=== PATIENT | female | born 1960 | race Caucasian/White ===

== ENCOUNTER 2019-12-05 13:21 | Emergency (ER) | payer OTHER | END 2019-12-05 17:18 | disposition home or self-care (01) | LOC: ER 13:21 | DX: R55 Syncope and collapse (principal); F12.90 Cannabis use, unspecified, uncomplicated; I10 Essential (primary) hypertension; E78.00 Pure hypercholesterolemia, unspecified; K21.9 Gastro-esophageal reflux disease without esophagitis; F17.200 Nicotine dependence, unspecified, uncomplicated; Z86.73 Personal history of transient ischemic attack (TIA), and cerebral infarction without residual deficits; Z88.8 Allergy status to other drugs, medicaments and biological substances; Z79.82 Long term (current) use of aspirin; Z79.02 Long term (current) use of antithrombotics/antiplatelets; Z79.899 Other long term (current) drug therapy ==

== ENCOUNTER → 2020-01-06 | Outpatient (CLI) | payer OTHER ==
[~2020-01-06] MED LIST: ACET500 PO; ASPI81CH PO; ATOR40TA PO; CLOP75 PO; Cran-Max500 MG PO; FAMO40 PO; HYDCHL25 PO; METO25ER PO; MULTIVITAMINS1 EAC3 PO; NICO21TP TOP; OMEP20ER PO; TURMERIC500 M2 PO; VITAMIN D31000 UNI1 PO
[2020-01-09 08:09] LABS: HPV 16 Negative (Negative); HPV 18 Negative (Negative); HPV OTHER HR TYPES Negative (Negative)
== END | disposition home or self-care (01) ==
LOC: LAB SHORT 16:45 → LAB UCHC 16:45
PROVIDERS: Family Medicine
DX: Z01.419 Encounter for gynecological examination (general) (routine) without abnormal findings (principal)
CPT/HCPCS: 87624; G0123

== ENCOUNTER 2020-05-12 09:27 | Inpatient (IN) | payer OTHER ==
[~2020-05-12] VITALS: Ht 165.1 cm; Wt 62.9 kg
[~2020-05-12 09:27] MED LIST changes: +Aspirin EC81 MG PO; +CRANBERRY500 M1 PO; +FAMO20 PO; +MULTIPLE VITAM1 EACH PO; +PLAVIX75 MG PO; +TOPROL XL25 MG PO
--- NOTE | 2020-05-12 10:17 | NUR ---
05/12/20 Judith Wooten UPON ADMISSION, PT'S HR IS 197BPM ACCORDING TO 3LEAD EKG. DR. LOPEZ AWARE, 12LEAD EKG ORDERED WITH RESULT OF 93BPM. PT DENIES ANY CHEST PAIN OR FEELING THAT HER HEART RATE IS FAST. PT SMILING, LAUGHING AND MAKING JOKES IN THE ROOM. WILL CONTINUE TO MONITOR. DR. LOPEZ OK TO PROCEED WITH PROCEDURES.
--- NOTE | 2020-05-12 12:54 | NUR ---
05/12/20 1254 DarioAriana Angel Luis 1148 PT. BACK IN ROOM FROM ENDO PROCEDURE. PT. VOMITING SMALL AMT. OF BILE. PT. C/O ABD. PAIN RATING "8". PT. WAS ASKED TO DESCRIBE HER PAIN BUT COULDN'T. PT. STATED "IT JUST HURTS." SEE VITAL STRIP. 1208 25MCG IV FENTANLY GIVEN FOR ABD. PAIN PER ORDER. 1213 PT. VERBALIZES ABDOMEN PAIN BETTER RATING "6-7". PT. VERBALIZES NO NAUSEA NOW. 1219 PT. TAKEN TO XRAY FOR XRAY OF ABDOMEN PER DRNiraj ORDER. PT. WAS TAKEN VIA WC & WRAPPED WITH WARM BLANKETS. 1240 PT. BACK FROM XRAY & TALKING WITH PT. THAT SHE NEEDS TO BE ADMITTED TO HOSPITAL FOR OBSERVATION R/T A LARGE POLYP BEING REMOVED. 1246 25MCG IV FENTANYL GIVEN PER ORDER FOR ABD. PAIN.
--- NOTE | 2020-05-12 14:42 | NUR ---
05/12/20 1442 Judith Avalos LATE ENTRY: INDIGO CARMINE INJECTION MIX INCLUDED 2CC OF EPI 1:1,000 AND 20CC OF NORMAL SALINE.
[2020-05-12 15:00] LABS: BASOPHILS ABSOLUTE AUTO 0.07 K/mm3 (0.00-0.23); BASOPHILS PERCENT AUTO 0 % (0-2); EOSINOPHILS PERCENT AUTO 0 % (0-6); Hematocrit 41.7 % (33.0-51.0); Hemoglobin 14.5 g/dL (11.5-16.0); IMMATURE GRAN ABSOLUTE AUTO 0.11 K/mm3 (0.00-0.10); IMMATURE GRAN PERCENT AUTO 1 % (0-1); LYMPHOCYTES ABSOLUTE AUTO 1.09 K/mm3 (0.84-5.20); LYMPHOCYTES PERCENT AUTO 6 % (21-46); MONOCYTES ABSOLUTE AUTO 0.46 K/mm3 (0.16-1.47); MONOCYTES PERCENT AUTO 2 % (4-13); Mean Corpuscular HGB 32.4 pg (26.0-34.0); Mean Corpuscular HGB Conc 34.8 g/dL (31.5-36.5); Mean Corpuscular Volume 93 fL (80-100); NEUTROPHILS ABSOLUTE AUTO 18.09 K/mm3 (1.96-9.15); NEUTROPHILS PERCENT AUTO 91 % (41-73); Platelet Count 315 K/mm3 (150-400); RDW Coefficient Variation 11.8 % (11.7-14.2); RDW Standard Deviation 40.4 fL (35.1-46.3); Red Blood Cell Count 4.48 M/mm3 (3.80-5.20); White Blood Cell Count 19.82 K/mm3 (4.00-11.30)
[2020-05-12 15:19] LABS: Alanine Aminotransfer (ALT/SGP 21 U/L (12-78); Albumin, Blood 3.7 g/dL (3.4-5.0); Albumin/Globulin Ratio 1.1 (0.8-1.8); Alk Phos 108 U/L (50-136); Anion Gap 13 mmol/L (6-16); Aspartate Aminotrans (AST/SGOT 19 U/L (12-37); Bilirubin, Total 0.2 mg/dL (0.1-1.0); Blood Urea Nitrogen 17 mg/dL (8-24); CO2, Blood 23 mmol/L (21-32); Calcium, Blood 9.1 mg/dL (8.5-10.1); Chloride, Blood 107 mmol/L (98-108); Creatinine, Blood 0.68 mg/dL (0.40-1.00); Globulin, Blood 3.4 g/dL (2.2-4.0); Glomerular Filtration Rate >60 (60-); Glucose, Blood 100 mg/dL (70-99); Potassium, Blood 3.7 mmol/L (3.5-5.5); Sodium, Blood 143 mmol/L (136-145); Total Protein, Blood 7.1 g/dL (6.4-8.2)
[2020-05-13 05:54] LABS: BASOPHILS ABSOLUTE AUTO 0.06 K/mm3 (0.00-0.23); BASOPHILS PERCENT AUTO 1 % (0-2); EOSINOPHILS ABSOLUTE AUTO 0.06 K/mm3 (0.00-0.68); EOSINOPHILS PERCENT AUTO 1 % (0-6); Hematocrit 34.1 % (33.0-51.0); Hemoglobin 11.5 g/dL (11.5-16.0); IMMATURE GRAN ABSOLUTE AUTO 0.05 K/mm3 (0.00-0.10); IMMATURE GRAN PERCENT AUTO 0 % (0-1); LYMPHOCYTES ABSOLUTE AUTO 2.78 K/mm3 (0.84-5.20); LYMPHOCYTES PERCENT AUTO 22 % (21-46); MONOCYTES ABSOLUTE AUTO 0.91 K/mm3 (0.16-1.47); MONOCYTES PERCENT AUTO 7 % (4-13); Mean Corpuscular HGB 31.2 pg (26.0-34.0); Mean Corpuscular HGB Conc 33.7 g/dL (31.5-36.5); Mean Corpuscular Volume 92 fL (80-100); Mean Platelet Volume 10.5 fL (9.1-12.4); NEUTROPHILS ABSOLUTE AUTO 8.95 K/mm3 (1.96-9.15); NEUTROPHILS PERCENT AUTO 70 % (41-73); Platelet Count 288 K/mm3 (150-400); RDW Coefficient Variation 11.9 % (11.7-14.2); RDW Standard Deviation 40.3 fL (35.1-46.3); Red Blood Cell Count 3.69 M/mm3 (3.80-5.20); White Blood Cell Count 12.81 K/mm3 (4.00-11.30)
[2020-05-13 06:23] LABS: Anion Gap 7 mmol/L (6-16); Blood Urea Nitrogen 17 mg/dL (8-24); Bun/Creatinine Ratio 24.8 (12.0-20.0); CO2, Blood 25 mmol/L (21-32); Calcium, Blood 8.2 mg/dL (8.5-10.1); Chloride, Blood 113 mmol/L (98-108); Creatinine, Blood 0.69 mg/dL (0.40-1.00); Glomerular Filtration Rate >60 (60-); Glucose, Blood 63 mg/dL (70-99); Potassium, Blood 3.5 mmol/L (3.5-5.5); Sodium, Blood 145 mmol/L (136-145)
--- NOTE | 2020-05-13 08:58 | NUR ---
A&0X3, DENIES ANY PAIN OR NAUSEA, ABD SOFT, ACTIVE BT'S X4, REPORTS FEELING "HUNGRY" CONT. TO MONITOR FOR ANY CHANGES, MEDICATE FOR PAIN PRN.
[2020-05-13] MEDS ORDERED: Nicoderm Cq1 EAC1 TOP (13:28)
--- NOTE | 2020-05-13 14:08 | NUR ---
PT TOLERATED REGULAR DIET WELL, DENIES ANY ABD PAIN OR DISCOMFORT, DC'D HOME, DC INSTRUCTIONS GIVEN, VERBALZIED UNDERSTANDING.
[2020-09-25] MEDS ORDERED: Lisinopril-Hct1 EAC4 PO (13:24)
== END 2020-05-13 14:00 | disposition home or self-care (01) | DRG 948 ==
LOC: ORSCSDS 09:27 → SURS 14:07 → ORSCSDS 14:09 → SURS 14:11
PROVIDERS: Student in an Organized Health Care Education/Training Program; ADMIT Internal Medicine
PROC: 0D5K8ZZ Destruction of Ascending Colon, Via Natural or Artificial Opening Endoscopic (ICD-10-PCS; 2020-05-12)
PROC: 0DBN8ZZ Excision of Sigmoid Colon, Via Natural or Artificial Opening Endoscopic (ICD-10-PCS; 2020-05-12)
PROC: 0DBL8ZZ Excision of Transverse Colon, Via Natural or Artificial Opening Endoscopic (ICD-10-PCS; 2020-05-12)
PROC: 0DBN8ZX Excision of Sigmoid Colon, Via Natural or Artificial Opening Endoscopic, Diagnostic (ICD-10-PCS; 2020-05-12)
PROC: 0DB48ZX Excision of Esophagogastric Junction, Via Natural or Artificial Opening Endoscopic, Diagnostic (ICD-10-PCS; principal; 2020-05-12 10:45)
PROC: 0DBK8ZZ Excision of Ascending Colon, Via Natural or Artificial Opening Endoscopic (ICD-10-PCS; 2020-05-12 10:45)
DX: G89.18 Other acute postprocedural pain (principal); I69.354 Hemiplegia and hemiparesis following cerebral infarction affecting left non-dominant side; K21.9 Gastro-esophageal reflux disease without esophagitis; I10 Essential (primary) hypertension; E78.5 Hyperlipidemia, unspecified; F17.210 Nicotine dependence, cigarettes, uncomplicated; J43.9 Emphysema, unspecified; Z98.890 Other specified postprocedural states; Z88.8 Allergy status to other drugs, medicaments and biological substances; Z79.02 Long term (current) use of antithrombotics/antiplatelets; Z79.82 Long term (current) use of aspirin; Z79.899 Other long term (current) drug therapy
CPT/HCPCS: 36415; 74019; 80048; 80053; 85025; 88305; 93005; 93010; J2405; J2543; J2704; J3010; J7030; J7040; J7120

== ENCOUNTER 2020-08-17 08:14 | Day surgery (SDC) | payer OTHER ==
[~2020-08-17 08:14] MED LIST changes: +Nicoderm Cq1 EAC1 TOP
[2020-08-17 09:40] LABS: Creatinine (POC) 0.7 mg/dL (0.6-1.0)
[2020-09-25] MEDS ORDERED: Lisinopril-Hct1 EAC4 PO (13:24)
== END 2020-08-17 23:22 | disposition home or self-care (01) ==
LOC: ORSCMMR 08:14 → ORD 08:14 → CT 08:14 → ORSCMMR 08:15 → ORD 08:30 → ORSCMMR 08:30 → CT 09:00 → ORSCMMR 23:22
PROVIDERS: Internal Medicine Cardiovascular Disease
DX: R07.9 Chest pain, unspecified (principal); I25.10 Atherosclerotic heart disease of native coronary artery without angina pectoris; I10 Essential (primary) hypertension; E78.5 Hyperlipidemia, unspecified; I69.898 Other sequelae of other cerebrovascular disease; Z88.8 Allergy status to other drugs, medicaments and biological substances; Z79.899 Other long term (current) drug therapy; F17.210 Nicotine dependence, cigarettes, uncomplicated
CPT/HCPCS: 75574; 82565; Q9967

== ENCOUNTER 2020-09-28 07:54 | Day surgery (SDC) | payer OTHER ==
[~2020-09-28] VITALS: Ht 167.6 cm; Wt 60.0 kg
[~2020-09-28 07:54] MED LIST changes: +Lisinopril-Hct1 EAC4 PO
--- NOTE | 2020-09-28 10:32 | NUR ---
ZIO PATCH ZIO PATCH PLACE BY ANESTHESIOLOGIST.
--- NOTE | 2020-09-28 10:56 | NUR ---
DISCHARGE PT REMAINED A&OX3 AND DENIED ANY PAIN DURING RECOVERY. PT ABLE TO SWALLOW WATER WITH EASE. ZIO PATCH PLACED. IV DC'D WITH CANULA IN TACT. DISCHARGE PAPERWORK GONE OVER WITH PT. PT VERBALLY STATED THE UNDERSTANDING OF THE DISCHARGE EDUCATION AND DENIED ANY QUESTIONS AT THIS TIME. THIS NURSE WALKED OUT WITH PATIENT.
== END 2020-09-28 23:48 | disposition home or self-care (01) ==
LOC: MHTC 07:54
DX: I63.9 Cerebral infarction, unspecified (principal); I69.354 Hemiplegia and hemiparesis following cerebral infarction affecting left non-dominant side; I25.10 Atherosclerotic heart disease of native coronary artery without angina pectoris; I10 Essential (primary) hypertension; E78.5 Hyperlipidemia, unspecified; F17.200 Nicotine dependence, unspecified, uncomplicated; Z79.82 Long term (current) use of aspirin
CPT/HCPCS: 93246; 93312; 93325; A9270; J2704; J7030

== ENCOUNTER 2020-10-27 09:37 | Inpatient (IN) | payer OTHER ==
[~2020-10-27] VITALS: Ht 165.1 cm; Wt 59.5 kg
--- NOTE | 2020-10-27 14:49 | NUR ---
FENTANYL 12.5 MCG IV GIVEN FOR SEVERE CHEST PAIN POST CHEST TUBE PLACEMENT. TYLENOL 650 MG PO ALSO GIVEN FOR CHEST PAIN BOTH VERBAL ORDER BY DR. LESTER.
--- NOTE | 2020-10-27 14:56 | NUR ---
DR LESTER PLACED CHEST TUBE R/T SOB WITH PNEUMO ON 2V CXR. PT STILL HAVING PAIN BUT BREATHING BETTER, SATS STABLE, FENTANYL 62.5 GIVEN AND 1V CXR COMPLETE AND REVIEWED BY DR LESTER. PT ON COMMODE NOW, APPEARS PAIN IS SUBSIDING, DR COOLEY BY TO REVIEW SITUATION, PLAN IS TO ADMIT PT OVERNIGHT
--- NOTE | 2020-10-27 16:06 | NUR ---
PT DELIVERED BY BED TO RM 212 AND REPORT GIVEN, PT PAIN SIGNIFICANTLY INCREASED IN L DIAPHRAM AREA DURING GENTLE BED TO BED TRANSFER. APPEARS STABLE AND BREATHING UNLABORED. TELE UNIT BROUGHT BY COMPENSATION DIRECTOR, DR COOLEY V/O TO HOLD D/C ANCEF UNTIL LATER THIS EVENING.
--- NOTE | 2020-10-27 16:07 | NUR ---
PT ADMITTED TO ROOM 212 ABOUT 1600. PT IS A/O X4. TRANSFERRED TO BED USING SLIDER SHEET. PT IS VERY PAINFUL IN DIAPHRAGM AREA. URESIL CHEST TUBE IN PLACE L CHEST. PACER SITE L CHEST WITH SMALL AMT BLOOD ON DRESSING, BUT INTACT AND DRY. LUNGS DIMINISHED L SIDE VS RIGHT, HOWEVER PT IS UNABLE TO TAKE BIG BREATHS R/T PAIN. TELE PLACED, L ARM SLING PLACED, ICE PACK ON L SHOULDER. PT ORIENTED TO ROOM, CALL LIGHT IN REACH.
--- NOTE | 2020-10-27 16:28 | NUR ---
DISCHARGE INSTRUCTIONS DISCUSSED WITH PATIENT. INFORMATION PAMPHLET AT BEDSIDE.
--- NOTE | 2020-10-27 17:11 | NUR ---
PT MEDICATED WITH 0.5MG DILAUDED PER EMAR WITH GOOD EFFECT. PT RESTING IN BED, ARM SLING IN PLACE TO L ARM.
--- NOTE | 2020-10-28 03:49 | NUR ---
SHIFT SUMMARY NO ACUTE CHANGES THIS SHIFT. IV PAIN MEDS CHANGED TO FENTANYL AND PT REPORTS BETTER PAIN RELIEF. 1 NORCO ALSO GIVEN PRN. PACEMAKER DRESSING TO LEFT CHEST WALL REMAINS UNCHANGED. CHEST TUBE TO LEFT CHEST WALL REMAINS INTACT. PT INDEP TO THE RESTROOM. TELE: SR IN THE 60S PER TECH. USES CALL LIGHT APPROPRIATELY.
[2020-10-28 05:00] LABS: Hematocrit 35.8 % (33.0-51.0); Hemoglobin 11.8 g/dL (11.5-16.0); Mean Corpuscular HGB 30.3 pg (26.0-34.0); Mean Corpuscular Volume 92 fL (80-100); Mean Platelet Volume 10.7 fL (9.1-12.4); Platelet Count 244 K/mm3 (150-400); RDW Coefficient Variation 13.4 % (11.7-14.2); RDW Standard Deviation 45.1 fL (35.1-46.3); White Blood Cell Count 10.99 K/mm3 (4.00-11.30)
[2020-10-28 05:32] LABS: Anion Gap 4 mmol/L (6-16); Blood Urea Nitrogen 16 mg/dL (8-24); Bun/Creatinine Ratio 22.4 (12.0-20.0); CO2, Blood 30 mmol/L (21-32); Calcium, Blood 8.7 mg/dL (8.5-10.1); Chloride, Blood 105 mmol/L (98-108); Creatinine, Blood 0.72 mg/dL (0.40-1.00); Glomerular Filtration Rate >60 (60-); Glucose, Blood 101 mg/dL (70-99); Potassium, Blood 3.6 mmol/L (3.5-5.5); Sodium, Blood 139 mmol/L (136-145)
--- NOTE | 2020-10-28 14:20 | NUR ---
RESTING IN BED, ENCOURAGED OOB, DENIES ANY SOB.
== END 2020-10-28 18:00 | disposition home or self-care (01) | DRG 168 ==
LOC: MHTC 09:37 → SURS 15:15 → MHTC 15:31 → SURS 15:31
PROVIDERS: ADMIT Internal Medicine Cardiovascular Disease
PROC: 0JH606Z Insertion of Pacemaker, Dual Chamber into Chest Subcutaneous Tissue and Fascia, Open Approach (ICD-10-PCS; principal; 2020-10-27)
PROC: 0B9L30Z Drainage of Left Lung with Drainage Device, Percutaneous Approach (ICD-10-PCS; 2020-10-27)
PROC: 02HK3JZ Insertion of Pacemaker Lead into Right Ventricle, Percutaneous Approach (ICD-10-PCS; 2020-10-27)
PROC: 02H63JZ Insertion of Pacemaker Lead into Right Atrium, Percutaneous Approach (ICD-10-PCS; 2020-10-27)
DX: J95.811 Postprocedural pneumothorax (principal); I49.5 Sick sinus syndrome; F17.210 Nicotine dependence, cigarettes, uncomplicated; I10 Essential (primary) hypertension; E78.5 Hyperlipidemia, unspecified; R20.0 Anesthesia of skin; I69.398 Other sequelae of cerebral infarction; K21.9 Gastro-esophageal reflux disease without esophagitis; Y83.8 Other surgical procedures as the cause of abnormal reaction of the patient, or of later complication, without mention of misadventure at the time of the procedure; Y71.2 Prosthetic and other implants, materials and accessory cardiovascular devices associated with adverse incidents; Z88.8 Allergy status to other drugs, medicaments and biological substances; Z79.899 Other long term (current) drug therapy; Z79.02 Long term (current) use of antithrombotics/antiplatelets; Z79.82 Long term (current) use of aspirin
CPT/HCPCS: 33208; 36415; 71045; 71046; 80048; 85027; 99152; 99153; A9270; C1785; C1898; J0690; J1170; J1580; J1644; J2250; J3010; J7030; J7040; Q9967

== ENCOUNTER 2024-05-13 11:36 | Emergency (ER) | payer MEDICARE, OTHER ==
[~2024-05-13] VITALS: Ht 165.1 cm; Wt 72.6 kg
[2024-05-13 11:42] VITALS: BP 142/79
[2024-05-13 12:26] LABS: Albumin, Blood 3.5 g/dL (3.4-5.0); Albumin/Globulin Ratio 1.1 (0.8-1.8); Bilirubin, Total 0.8 mg/dL (0.1-1.0); Bun/Creatinine Ratio 34.1 (12.0-20.0); Calcium, Blood 8.9 mg/dL (8.5-10.1); Creatinine, Blood 0.59 mg/dL (0.40-1.00); Globulin, Blood 3.3 g/dL (2.2-4.0); Potassium, Blood 4.6 mmol/L (3.5-5.5); Total Protein, Blood 6.8 g/dL (6.4-8.2)
[2024-05-13] MEDS ORDERED: WATER FOR INJECTION STERILE IV ONE (12:30)
[2024-05-13] MEDS ORDERED: HUMAN PROTHROMBIN COMPLX IV ONE (12:30)
[2024-05-13] MEDS ORDERED: NiCARdipine HCL 50 MG in NS 250 ML IV SCH (12:30)
== END 2024-05-13 13:30 | disposition other institution (70) ==
LOC: ER 11:36
PROVIDERS: Emergency Medicine
DX: I61.0 Nontraumatic intracerebral hemorrhage in hemisphere, subcortical (principal); R29.810 Facial weakness; R47.81 Slurred speech; F17.210 Nicotine dependence, cigarettes, uncomplicated; K21.9 Gastro-esophageal reflux disease without esophagitis; I10 Essential (primary) hypertension; Z88.8 Allergy status to other drugs, medicaments and biological substances; Z79.899 Other long term (current) drug therapy; Z79.02 Long term (current) use of antithrombotics/antiplatelets; Z79.82 Long term (current) use of aspirin
CPT/HCPCS: 70450; 80053; 82550; 84484; 93005; 93010; 96374; 96375; 99285-25; J7050; J7168

== ENCOUNTER 2024-09-06 18:53 | Emergency (ER) | payer MEDICARE, OTHER ==
[~2024-09-06] VITALS: Ht 167.6 cm; Wt 65.8 kg
[2024-09-06] MEDS ORDERED: Folic Acid 1 MG TAB PO ONE (19:10)
[2024-09-06 19:14] LABS: BASOPHILS ABSOLUTE AUTO 0.05 K/mm3 (0.00-0.23); BASOPHILS PERCENT AUTO 1 % (0-2); EOSINOPHILS ABSOLUTE AUTO 0.10 K/mm3 (0.00-0.68); EOSINOPHILS PERCENT AUTO 1 % (0-6); Hematocrit 44.1 % (33.0-51.0); Hemoglobin 14.9 g/dL (11.5-16.0); IMMATURE GRAN ABSOLUTE AUTO 0.03 K/mm3 (0.00-0.10); IMMATURE GRAN PERCENT AUTO 0 % (0-1); LYMPHOCYTES ABSOLUTE AUTO 2.05 K/mm3 (0.84-5.20); LYMPHOCYTES PERCENT AUTO 26 % (21-46); MONOCYTES ABSOLUTE AUTO 0.33 K/mm3 (0.16-1.47); MONOCYTES PERCENT AUTO 4 % (4-13); Mean Corpuscular HGB Conc 33.8 g/dL (31.5-36.5); Mean Corpuscular Volume 91 fL (80-100); NEUTROPHILS ABSOLUTE AUTO 5.30 K/mm3 (1.96-9.15); NEUTROPHILS PERCENT AUTO 67 % (41-73); NRBC ABSOLUTE 0.00 K/mm3 (0.00-0.02); NRBC Auto 0.0 /100 WBC (0.0-0.2); Platelet Count 282 K/mm3 (150-400); RDW Coefficient Variation 11.8 % (11.7-14.2); RDW Standard Deviation 39.6 fL (35.1-46.3)
[2024-09-06 19:39] LABS: Magnesium, Blood 1.9 mg/dL (1.6-2.4)
[2024-09-06] MEDS ORDERED: DiphenhydrAMINE HCl 50 MG/ML 1ML Vial ONE (19:48)
[2024-09-06] MEDS ORDERED: LORazepam 2 MG/ML 1ML Injection IV ONE (19:50)
[2024-09-06] MEDS ORDERED: DiphenhydrAMINE HCl 50 MG/ML 1ML Vial IV ONE (19:50)
[2024-09-06 19:57] LABS: Anion Gap 10.0 mmol/L (3-11); Blood Urea Nitrogen 5.0 mg/dL (8-24); CO2, Blood 24.0 mmol/L (21-32); Calcium, Blood 8.3 mg/dL (8.5-10.1); Chloride, Blood 107.0 mmol/L (98-108); Creatinine, Blood 0.54 mg/dL (0.40-1.00); Glucose, Blood 123.0 mg/dL (70-99); Potassium, Blood 3.4 mmol/L (3.5-5.5); Sodium, Blood 138.0 mmol/L (136-145); Thyroid Stimulating Hormone 0.764 uIU/mL (0.360-4.800)
[2024-09-06 20:47] VITALS: BP 112/70
[2024-09-06] MEDS ORDERED: Potassium Chloride 10 Meq Tablet SA PO ONE (20:50)
== END 2024-09-06 21:00 | disposition home or self-care (01) ==
LOC: ER 18:53
PROVIDERS: Emergency Medicine
DX: S01.81XA Laceration without foreign body of other part of head, initial encounter (principal); F10.10 Alcohol abuse, uncomplicated; D32.9 Benign neoplasm of meninges, unspecified; E78.5 Hyperlipidemia, unspecified; K21.9 Gastro-esophageal reflux disease without esophagitis; I10 Essential (primary) hypertension; F17.200 Nicotine dependence, unspecified, uncomplicated; W19.XXXA Unspecified fall, initial encounter; Z86.73 Personal history of transient ischemic attack (TIA), and cerebral infarction without residual deficits; Z79.82 Long term (current) use of aspirin; Z79.899 Other long term (current) drug therapy; Z88.8 Allergy status to other drugs, medicaments and biological substances
CPT/HCPCS: 12011; 70450; 71045; 72125; 80048; 80320; 82607; 83735; 84439; 84443; 85025; 93005; 93010; 96374-59; 99285-25; A6590; A9270; J1200; L0160